=== PATIENT | male | born 1965 | race Caucasian/White ===

== ENCOUNTER 2016-09-12 10:43 | Emergency (ER) | payer SELFPAY ==
[~2016-09-12] VITALS: Ht 182.9 cm; Wt 95.5 kg
[~2016-09-12 10:43] MED LIST: BAYE2KIT; GLUCTAB PO; PERC5TAB12 PO; TAMS0.4C67 PO
[2016-09-12 10:44] VITALS: BP 172/96; PULSE 110; RESP 20; TEMP 98; O2SAT 99
[2016-09-12] MEDS ORDERED: METF1000 PO (10:53)
[2016-09-12] MEDS ORDERED: TRAM50TA PO (11:11)
[2016-09-12] MEDS ORDERED: IBUP-232 PO (11:11)
[2016-09-12] MEDS ORDERED: CLIN1CAP5 PO (11:11)
--- NOTE | 2016-09-12 11:11 | PD ---
HPI Chief Complaint: Facial Pain or Swelling Time Seen by Provider: 10:57 Travel History International Travel<30 days: No Contact w/Intl Traveler<30days: No Traveled to known affect area: No History of Present Illness HPI 51-year-old male complains of right-sided facial pain and swelling. Patient states that he has intermittent right-sided today for the past 2 months. Patient states that he started having right-sided facial swelling and increasing pain since last night. Patient denies any fever chills. Patient denies any problem with swallowing. On a scale of 1-10 the pain is an 8. PFSH Past Medical History Blood Disorders: No Cancer: No Cardiovascular Problems: No Chemotherapy: No Diabetes: Yes Patient Takes Glucophage: Yes Diminished Hearing: No Endocrine: No Gastrointestinal Disorders: No Genitourinary: No Immune Disorder: No Musculoskeletal: No Neurologic: No Psychiatric: No Reproductive: No Respiratory: No Radiation Therapy: No Past Surgical History AICD: No Arteriovenous Shunt: No Insulin Pump: No Joint Replacement: No Oral Surgery: Yes Pacemaker: No Other Surgery: No Social History Alcohol Use: No Tobacco Use: No Substance Use: No Allergies-Medications (Allergen,Severity, Reaction): Coded Allergies: No Known Allergies (Verified , 09/12/16) Reported Meds & Prescriptions Reported Meds & Active Scripts Active Reported Metformin (Metformin HCl) 1,000 Mg Tab 1,000 Mg PO BIDPC With meals Review of Systems General / Constitutional: No: Fever Eyes: No: Visual changes HENT: No: Headaches Cardiovascular: No: Chest Pain or Discomfort Respiratory: No: Shortness of Breath Gastrointestinal: No: Abdominal Pain Genitourinary: No: Dysuria Musculoskeletal: No: Pain Skin: No Rash Neurologic: No: Weakness Psychiatric: No: Depression Endocrine: No: Polydipsia Hematologic/Lymphatic: No: Easy Bruising Physical Exam Narrative GENERAL: Well-nourished, well-developed patient. SKIN: Focused skin assessment warm/dry. HEAD: Normocephalic. EYES: No scleral icterus. No injection or drainage. NECK: Supple, trachea midline. No JVD or lymphadenopathy. CARDIOVASCULAR: Regular rate and rhythm without murmurs, gallops, or rubs. RESPIRATORY: Breath sounds equal bilaterally. No accessory muscle use. GASTROINTESTINAL: Abdomen soft, non-tender, nondistended. MUSCULOSKELETAL: No cyanosis, or edema. BACK: Nontender without obvious deformity. No CVA tenderness. Patient has soft tissue swelling tenderness right-sided face and right upper gum. Data Data Last Documented VS Vital Signs Date Time Temp Pulse Resp B/P Pulse Ox O2 Delivery O2 Flow Rate FiO2 09/12/16 10:44 98.0 110 20 172/96 99 Room Air Orders Clindamycin Inj (Cleocin Inj) (09/12/16 11:15) MDM Medical Decision Making Medical Screen Exam Complete: Yes Emergency Medical Condition: Yes Differential Diagnosis Differential diagnosis including dental pain, dental abscess. Narrative Course 51-year-old male with pain and swelling of the right sided Facial and right upper gum. Clindamycin 600 mg IM. Diagnosis Primary Impression: Dental abscess Patient Instructions: General Instructions Additional Instructions: Take medications as directed. Follow-up with a dentist. Return if worse. Med/Other Pt SpecificInfo: Prescription(s) given Scripts Clindamycin 150 Mg Cap2 Tab PO Q6H #80 CAP Prov:Joshua Collins MD 09/12/16 Tramadol 50 Mg Tab50 Mg PO Q6H PRN (PAIN) #20 TAB Ref 0 Prov:Joshua Collins MD 09/12/16 Ibuprofen 600 Mg Tab1 Tab PO Q8H PRN (PAIN) #60 TAB Ref 0 Prov:Joshua Collins MD 09/12/16 Disposition: 01 DISCHARGE HOME Condition: Stable Joshua Collins MD September 12, 2016 11:11
[2016-09-12] MEDS ORDERED: CLINDAMYCIN PHOS 600 MG/4 ML VIAL IM ONE (11:15)
== END 2016-09-12 11:43 | disposition home or self-care (01) ==
LOC: NEPD 10:43
DX: K04.7 Periapical abscess without sinus (principal)
CPT/HCPCS: 96372